=== PATIENT | female | born 1940 | race Caucasian/White ===

== ENCOUNTER 2016-06-30 14:06 | Inpatient (IN) ==
[2016-06-30] MEDS ORDERED: 0.9 % Sodium Chloride 1,000 ML IVC ONE (15:16)
[2016-06-30] MEDS ORDERED: Ondansetron 4 MG/2 ML VIAL IV ONE (15:16)
--- NOTE | 2016-06-30 15:19 | Emergency Department Note ---
Disposition Clinical Impression: CAP (community acquired pneumonia) Vomiting Qualifiers: Vomiting type: unspecified Vomiting Intractability: non-intractable Nausea presence: with nausea Qualified Code(s): R11.2 - Nausea with vomiting, unspecified Disposition: Home, Self-Care Condition: Good Time of Disposition: 15:24 Nausea/Vomiting/Diarrhea HPI - General Chief complaint: ED Nausea/Vomiting/Diarrhea Stated complaint: N/V Time Seen by Provider: 06/30/16 14:57 Source: patient Mode of arrival: ambulatory Limitations: no limitations Nursing Notes Reviewed: Yes Vital Signs Reviewed: Yes - History of Present Illness HPI Narrative: 75-year-old female presents after multiple episodes of vomiting. Patient states that she has vomited twice today. She felt like she was in her usual state of health yesterday. Patient reports the emesis was gold colored but denied hematemesis or coffee-ground emesis. No history of gastric ulcers in the past. Patient denies history of cardiac disease. Patient reports left posterior lateral thoracic pain with deep breaths and with movement. Patient states that this has been present for the past 4 days and thinks that it may have occurred after moving boxes of canned goods. Patient denies other trauma. Patient denies diaphoresis, palpitations, syncope, diarrhea, abdominal pain, dysuria. - Related Data Home Medications Medication Instructions Recorded Confirmed No Known Home Drugs 06/30/16 06/30/16 Allergies Allergy/AdvReac Type Severity Reaction Status Date / Time ANTIBIOTIC Allergy Severe Difficulty Uncoded 06/30/16 16:51 Breathing All systems ED: reviewed and negative except as stated. Constitutional: Denies: fever, chills, weakness, weight change Cardiovascular: Denies: chest pain, palpitations Respiratory: Denies: cough, dyspnea, wheezes Gastrointestinal: Reports: nausea, vomiting. Denies: abdominal pain, diarrhea Genitourinary: Denies: urgency, dysuria Musculoskeletal: Denies: back pain, neck pain Neurological: Denies: headache, weakness, numbness Past Medical History - Past Medical History Attestation: Yes The following information was validated with the patient. Source: patient, other (Pt is poor historian about past medical history) Medical history: Reports: hypertension Psychiatric history: Reports: no psych history - Social History Smoking Status: Never smoker Smokeless Tobacco Status: No Alcohol use: Reports: none Drug use: Reports: none Physical Exam General: Alert and in no acute distress Skin: Warm, dry, intact Head: Normocephalic and atraumatic Neck: Supple, trachea midline and no tenderness Cardiovascular: RRR, 3/6 systolic murmur at the right sternal border, normal perfusion Respiratory: CTAB, no wheezing, cough, or respiratory distress Musculoskeletal: Normal strength, no tenderness, swelling or deformity GI: Soft, nontender, nondistended. Bowel sounds present Neuro: A&O to person, place, time and situation. No focal deficits noted on exam Psychiatric: cooperative and appropriate mood and affect. - General Limitations: no limitations General appearance: alert, in no apparent distress Course Vital Signs Temperature 97.9 F 06/30/16 14:51 Pulse Rate 100 06/30/16 14:51 Respiratory Rate 16 06/30/16 14:51 Blood Pressure 185/72 06/30/16 14:51 O2 Sat by Pulse Oximetry 89 L 06/30/16 14:51 Temperature 0 F L 06/30/16 18:33 Pulse Rate 77 06/30/16 16:18 Respiratory Rate 0 06/30/16 18:33 Blood Pressure 0/0 06/30/16 18:33 O2 Sat by Pulse Oximetry 100 06/30/16 16:18 Oxygen Delivery Oxygen Delivery Nasal Cannula Nausea/Vomiting/Diarrhea - [facility] Narrative Medical decision making narrative: Patient given Zofran and a liter of fluids for control of nausea and possible dehydration. Chest x-ray shows a left lower lobe pneumonia. Patient was hypoxic on arrival and would likely benefit from inpatient treatment. Family and patient are comfortable with plan for admission to the hospital for treatment with IV antibiotics. Patient was prescribed ceftriaxone and azithromycin for likely community-acquired pneumonia. Patient states she had an allergy to an unknown medication multiple years ago but is unsure what this medication is. - Medical Records Medical records reviewed: Yes I reviewed the patient's medical records. - Lab Data Lab results reviewed: Yes I reviewed the patient's lab results. Result diagrams: 06/30/16 15:23 06/30/16 15:23 Lab Results 06/30/16 06/30/16 06/30/16 Range/Units 15:11 15:23 15:23 WBC 14.7 H (4.3-11.1) K/mcL RBC 4.67 (3.82-4.97) M/mcL Hgb 13.2 (11.5-15.4) g/dL Hct 39.2 (35.3-44.9) % MCV 83.9 (83.0-100.0) fL MCH 28.3 (28.0-33.3) pg MCHC 33.7 (31.6-35.5) g/dL RDW 12.2 (11.5-14.5) % Plt Count 143 (140-400) K/mcL MPV 10.9 (9.4-12.4) fL Immature Gran % 0.5 (0-4) % Seg Neutrophils % 88.3 % Lymphocytes % 6.0 % Monocytes % 5.1 % Eosinophils % 0.0 % Basophils % 0.1 % Neutrophils # 13.0 H (1.6-8.9) K/mcL Lymphocytes # 0.9 (0.6-4.6) K/mcL Monocytes # 0.8 (0.0-1.3) K/mcL Eosinophils # 0.0 (0.0-0.6) K/mcL Basophils # 0.0 (0.0-0.2) K/mcL Sodium 131 L (136-145) mEq/L Potassium 4.1 (3.5-4.5) mEq/L Chloride 99 (98-109) mEq/L Carbon Dioxide 24 (19-29) mEq/L BUN 14 (7-20) mg/dL Creatinine 0.76 (0.57-1.11) mg/dL Est GFR ( Amer) > 60 (> 60) Est GFR (Non-Af Amer) > 60 (> 60) BUN/Creatinine Ratio 18 (6-26) Glucose 117 H (70-99) mg/dL Calculated Osmolality 274 L (280-300) Calcium 9.6 (8.6-10.8) mg/dL Total Bilirubin (0.2-1.2) mg/dL Direct Bilirubin (0.0-0.5) mg/dL Indirect Bilirubin (0.0-1.2) mg/dL AST (5-34) Units/L ALT (0-55) Units/L Alkaline Phosphatase (38-126) Units/L Troponin I (0-0.03) ng/mL Serum Total Protein (6.0-8.3) g/dL Albumin (3.5-5.0) g/dL Globulin (2.4-3.5) g/dL Albumin/Globulin Ratio (1.1-2.2) Lipase (8-78) Units/L Urine Color Yellow (Yellow) Urine Clarity Clear (Clear) Urine pH 7.0 (5.0-8.0) pH Units Ur Specific [place] 1.024 (1.010-1.025) Urine Protein 100 H (Neg-Trace) mg/dL Urine Glucose (UA) Normal (Normal) mg/dL Urine Ketones 15 H (Negative) mg/dL Urine Blood Negative (Negative) Urine Nitrite Negative (Negative) Urine Bilirubin Negative (Negative) Urine Urobilinogen Normal (Normal) mg/dL Ur Leukocyte Esterase Negative (Negative) Urine Microscopic RBC 5-15 H (0-3) per hpf Urine Microscopic WBC 0-3 (0-3) per hpf Ur Squamous Epith Cells Moderate H (None-Few) per lpf Urine Bacteria None Seen (None-Few) per hpf Hyaline Casts None Seen (None-Few) per lpf Ur Culture Indicated? NO (NO) 06/30/16 06/30/16 Range/Units 15:23 15:23 WBC (4.3-11.1) K/mcL RBC (3.82-4.97) M/mcL Hgb (11.5-15.4) g/dL Hct (35.3-44.9) % MCV (83.0-100.0) fL MCH (28.0-33.3) pg MCHC (31.6-35.5) g/dL RDW (11.5-14.5) % Plt Count (140-400) K/mcL MPV (9.4-12.4) fL Immature Gran % (0-4) % Seg Neutrophils % % Lymphocytes % % Monocytes % % Eosinophils % % Basophils % % Neutrophils # (1.6-8.9) K/mcL Lymphocytes # (0.6-4.6) K/mcL Monocytes # (0.0-1.3) K/mcL Eosinophils # (0.0-0.6) K/mcL Basophils # (0.0-0.2) K/mcL Sodium (136-145) mEq/L Potassium (3.5-4.5) mEq/L Chloride (98-109) mEq/L Carbon Dioxide (19-29) mEq/L BUN (7-20) mg/dL Creatinine (0.57-1.11) mg/dL Est GFR ( Amer) (> 60) Est GFR (Non-Af Amer) (> 60) BUN/Creatinine Ratio (6-26) Glucose (70-99) mg/dL Calculated Osmolality (280-300) Calcium (8.6-10.8) mg/dL Total Bilirubin 0.9 (0.2-1.2) mg/dL Direct Bilirubin 0.3 (0.0-0.5) mg/dL Indirect Bilirubin 0.6 (0.0-1.2) mg/dL AST 14 (5-34) Units/L ALT 10 (0-55) Units/L Alkaline Phosphatase 87 (38-126) Units/L Troponin I 0.00 (0-0.03) ng/mL Serum Total Protein 8.2 (6.0-8.3) g/dL Albumin 3.5 (3.5-5.0) g/dL Globulin 4.7 H (2.4-3.5) g/dL Albumin/Globulin Ratio 0.7 L (1.1-2.2) Lipase 27 (8-78) Units/L Urine Color (Yellow) Urine Clarity (Clear) Urine pH (5.0-8.0) pH Units Ur Specific [place] (1.010-1.025) Urine Protein (Neg-Trace) mg/dL Urine Glucose (UA) (Normal) mg/dL Urine Ketones (Negative) mg/dL Urine Blood (Negative) Urine Nitrite (Negative) Urine Bilirubin (Negative) Urine Urobilinogen (Normal) mg/dL Ur Leukocyte Esterase (Negative) Urine Microscopic RBC (0-3) per hpf Urine Microscopic WBC (0-3) per hpf Ur Squamous Epith Cells (None-Few) per lpf Urine Bacteria (None-Few) per hpf Hyaline Casts (None-Few) per lpf Ur Culture Indicated? (NO) - Radiology Data Radiology results reviewed: Yes I reviewed the patient's radiology results. - EKG Data EKG attestation: Yes I reviewed and interpreted this EKG.
[2016-06-30 15:38] LABS: Basophils % 0.1 %; Hematocrit 39.2 % (35.3-44.9); Hemoglobin 13.2 g/dL (11.5-15.4); Immature Granulocytes % 0.5 % (0-4); Lymphocytes # 0.9 K/mcL (0.6-4.6); Mean Corpuscular HGB Conc 33.7 g/dL (31.6-35.5); Mean Corpuscular Hemoglobin 28.3 pg (28.0-33.3); Mean Corpuscular Volume 83.9 fL (83.0-100.0); Mean Platelet Volume 10.9 fL (9.4-12.4); Monocytes # 0.8 K/mcL (0.0-1.3); Monocytes % 5.1 %; Platelet Count 143 K/mcL (140-400); Red Blood Count 4.67 M/mcL (3.82-4.97); Red Cell Distribution Width 12.2 % (11.5-14.5); Segmented Neutrophils % 88.3 %
[2016-06-30 15:54] LABS: BUN/Creatinine Ratio 18 (6-26); Blood Urea Nitrogen 14 mg/dL (7-20); Calcium 9.6 mg/dL (8.6-10.8); Carbon Dioxide 24 mEq/L (19-29); Chloride 99 mEq/L (98-109); Glucose 117 mg/dL (70-99); Osmolality,Calculated 274 (280-300); Potassium 4.1 mEq/L (3.5-4.5); Sodium 131 mEq/L (136-145); eGFR For African Americans > 60 (> 60); eGFR For Non-African Americans > 60 (> 60)
[2016-06-30] MEDS ORDERED: Azithromycin 500 MG in D5% in Water 250 ML IVPB ONE (15:55)
[2016-06-30 15:57] LABS: Albumin 3.5 g/dL (3.5-5.0); Albumin/Globulin Ratio 0.7 (1.1-2.2); Bilirubin,Direct 0.3 mg/dL (0.0-0.5); Bilirubin,Indirect 0.6 mg/dL (0.0-1.2); Bilirubin,Total 0.9 mg/dL (0.2-1.2); Globulin 4.7 g/dL (2.4-3.5); Total Protein 8.2 g/dL (6.0-8.3)
[2016-06-30 16:13] LABS: Bilirubin,Urine Negative (Negative); Blood,Urine Negative (Negative); Clarity,Urine Clear (Clear); Color,Urine Yellow (Yellow); Glucose,Urine (UA) Normal (Normal); Ketones,Urine 15 mg/dL (Negative); Leukocyte Esterase,Urine Negative (Negative); Nitrite,Urine Negative (Negative); Protein,Urine 100 mg/dL (Neg-Trace); Specific Gravity,Urine 1.024 (1.010-1.025); Urobilinogen,Urine Normal (Normal)
[2016-06-30 16:15] LABS: Bacteria,Urine None Seen per hpf (None-Few); Hyaline Casts,Urine None Seen per lpf (None-Few); Squamous Epithelial Cell,Urine Moderate per lpf (None-Few); WBC,Urine 0-3 per hpf (0-3)
[2016-06-30] MEDS ORDERED: *HR* Morphine 2 MG/ML SYRINGE IV ONE (16:56)
--- NOTE | 2016-06-30 18:23 | Internal Med History&Physical ---
Date of Encounter: 06/30/16 Time of Encounter: 18:20 Assessment and Plan (1) Community acquired pneumonia Current visit: Yes Status: Acute Patient found to have hypoxia, tachycardia, leukocytosis at presentation. Hypoxia resolved with use of 2 L nasal cannula, tachycardia resolved with improving patient's symptoms. Chest x-ray showed left lower lobe pneumonia with small pleural effusion. Will treat for community acquired pneumonia Continue ceftriaxone Continue azithromycin Continue supplemental oxygen as needed to maintain oxygen saturations above 92% , wean as tolerated Continue to monitor Tylenol for fever [place] and Morphine for pain (2) Chest pain Current visit: Yes Status: Acute Patient reports having chest pain under the ribs on her left anteriolateral side , in the inferior area of the left lung. This coincides with the location of her pneumonia that was seen on CXR. Because of the pleuritic nature of this pain , her hypoxia and tachycardia when she presented, there is some concern for pulmonary embolism. There was a systolic murmur auscultated on exam, she has no prior medical history so it is difficult at gauging the significance of this currently. Will reassess after results return. Will obtain CTA of her chest Will have 75 ml/hr until morning [place] for moderate pain Morphine for severe pain Qualifiers: Chest pain type: chest pain on breathing Qualified Code(s): R07.1 - Chest pain on breathing (3) Vomiting Current visit: Yes Status: Acute Patient reports 2 episodes of non-bloody emesis earlier today. Now resolved with medication Continue Zofran prn for nausea Qualifiers: Vomiting type: unspecified Vomiting Intractability: non-intractable Nausea presence: with nausea Qualified Code(s): R11.2 - Nausea with vomiting, unspecified (4) DVT prophylaxis Current visit: Yes Status: Acute 5000 U heparin SQ BID Internal Medicine - H&P: HPI Chief complaint: Vomiting, Chest Pain, Exertional Dyspnea Admitted From: Home Plans for Post Hospital Care: Home History of present illness: Ms. Vicente is a 75 year old female with a history of htn presents to [facility] after having had chest pain for 5-6 days. She states that pain began before Nasir and was slight at first, but proceeded to get worse over the next few days. She describes the pain as being sharp and located under her ribs in the left lower, mid axillary region of her chest. She described the pain as a 10/10 in severity that had some radiation to her left shoulder. She describes the pain as worsened with inspiration. She states that in about the same time period she has been having some increasing exertional dyspnea. Finally, she states that she had some vomiting today, she reports 2 episodes. She describes her vomit as yellow and non-bloody. She denies having had a fever or chills, denies a cough, and denies mucus production. She denies abdominal pain and denies diarrhea or constipation. Past Med Surg Social Fam HX - Past Medical History Medical history: hypertension Psychiatric history: no psych history - Social History Smoking Status: Never smoker Smokeless Tobacco Status: No Alcohol use: none Drug use: none - Family History Sister Age: 62 Living Status: Still Living Hx Family Cardiac Disorders: Yes Hx Family Respiratory Disorders: No Hx Family Cancer: Yes Hx Family GI Disorders: No Hx Family Endocrine Disorder: No Hx Family Medical Disorders: Yes Internal Medicine - H&P: Meds No Known Home Drugs 06/30/16 [History] Allergies ANTIBIOTIC Allergy (Severe, Uncoded 06/30/16 16:51) Difficulty Breathing PATIENT AND DAUGHTER ARE NOT SURE WHICH ANTIBIOTIC CAUSED CORAZON- IT WAS IN 2007- I CALLED Local [facility] AND THEY DO NOT HAVE FILL RECORDS BACK THAT FAR- - Constitutional Constitutional: no chills, no fever(s), no weakness - EENT Eyes: no change in vision, no pain, no photophobia Nose, mouth and throat: no dysphagia, no nasal discharge, no neck pain, no sore throat - Cardiovascular Cardiovascular ROS IM: as per HPI, chest pain, no diaphoresis, no dyspnea, no lightheadedness, no palpitations, no syncope - Respiratory Respiratory: as per HPI, dyspnea on exertion, pain on inspiration, no cough, no dyspnea, no wheezing, no excessive phlegm production, no change in phlegm color - Gastrointestinal Gastrointestinal: nausea, vomiting, no abdominal pain, no diarrhea, no hematemesis, no hematochezia, no melena - Musculoskeletal Musculoskeletal ROS IM: no numbness, no tingling - Integumentary Integumentary IM: no rash, no unusual bruising - Neurological Neurological ROS: no confusion, no convulsions, no focal weakness, no numbness, no tingling, no tremor(s) - Constitutional Vitals: Temp Pulse Resp BP Pulse Ox 97.9 F 77 18 167/79 100 06/30/16 14:51 06/30/16 16:18 06/30/16 16:18 06/30/16 16:18 06/30/16 16:18 General appearance: Present: cooperative, mild distress, A&O X 3, pleasant, answers questions appropriately - Head Head exam: Present: atraumatic, normocephalic - Eye Eye exam: Present: conjuntiva pink, sclera anicteric - Neck Neck exam general surgery: Present: supple, trachea midline - Respiratory Respiratory exam: Present: decreased breath sounds (throughout), CTAB. Absent: accessory muscle use, rales, rhonchi, wheezes - Cardiovascular Cardiovascular exam: Present: RRR, +S1, +S2, systolic murmur (3/6). Absent: diastolic murmur, gallop, rubs - GI/Abdominal GI/Abdominal exam: Present: normal bowel sounds, soft, no peritoneal signs. Absent: distended, tenderness - Extremities Exam Extremities exam: Present: warm, radial pulses palpable and symetrical. Absent : calf tenderness, cyanotic, pedal edema - Neurological Exam Neurological exam: Present: altered, oriented X3, no focal deficits. Absent: facial droop, speech deficit - Skin Skin exam: Present: dry, intact Internal Med - H&P Results - Labs CBC & Chem 7: 06/30/16 15:23 06/30/16 15:23
[2016-06-30] MEDS ORDERED: Naloxone 0.4 MG/ML INJ IVP PRN (18:52)
[2016-06-30] MEDS ORDERED: Acetaminophen 325 MG TABLET PO PRN (18:52)
[2016-06-30] MEDS ORDERED: Ondansetron 4 MG/2 ML VIAL IVP PRN (18:52)
[2016-06-30] MEDS ORDERED: *HR* HYDROcodone/Acet 5/325 mg TABLET PO PRN (18:52)
[2016-06-30] MEDS: *HR* Morphine 2 MG/ML SYRINGE IVP PRN (19:42)
[2016-06-30] MEDS: 0.9 % Sodium Chloride 1,000 ML IVC SCH (19:46)
[2016-07-01] MEDS: *HR* Morphine 2 MG/ML SYRINGE IVP PRN ×3 (03:18→15:59)
[2016-07-01 05:07] LABS: Basophils % 0.1 %; Eosinophils % 0.3 %; Hematocrit 34.6 % (35.3-44.9); Immature Granulocytes % 0.5 % (0-4); Lymphocytes # 1.4 K/mcL (0.6-4.6); Lymphocytes % 15.9 %; Mean Corpuscular HGB Conc 32.4 g/dL (31.6-35.5); Mean Corpuscular Hemoglobin 28.4 pg (28.0-33.3); Mean Corpuscular Volume 87.8 fL (83.0-100.0); Mean Platelet Volume 11.3 fL (9.4-12.4); Monocytes # 0.9 K/mcL (0.0-1.3); Monocytes % 10.4 %; Neutrophils # 6.4 K/mcL (1.6-8.9); Platelet Count 120 K/mcL (140-400); Red Blood Count 3.94 M/mcL (3.82-4.97); Red Cell Distribution Width 12.4 % (11.5-14.5); Segmented Neutrophils % 72.8 %
[2016-07-01 05:20] LABS: Hemoglobin 11.2 g/dL (11.5-15.4)
[2016-07-01 05:21] LABS: BUN/Creatinine Ratio 18 (6-26); Blood Urea Nitrogen 14 mg/dL (7-20); Calcium 8.7 mg/dL (8.6-10.8); Carbon Dioxide 26 mEq/L (19-29); Chloride 106 mEq/L (98-109); Glucose 107 mg/dL (70-99); Magnesium 1.9 mg/dL (1.6-2.6); Osmolality,Calculated 287 (280-300); eGFR For African Americans > 60 (> 60); eGFR For Non-African Americans > 60 (> 60)
[2016-07-01 05:24] LABS: Sodium 138 mEq/L (136-145)
[2016-07-01] MEDS: *HR* Heparin 5,000 UNIT/ML VIAL SQ SCH ×2 (06:07→17:23)
[2016-07-01] MEDS: 0.9 % Sodium Chloride 1,000 ML IVC SCH ×2 (06:07→17:24)
[2016-07-01] MEDS ORDERED: Pantoprazole 40 MG VIAL IVP SCH (09:00)
[2016-07-01] MEDS: Azithromycin 500 MG in D5% in Water 250 ML IVPB SCH (09:46)
--- NOTE | 2016-07-01 11:31 | Electrocardiograph Report ---
[facility] Test Date: 2016-06-30 Pat Name: Joann Vicente Department: 104 Room: 2NE32 Gender: F [employer] Apprentice: ALEJANDRO : 1940 Requested By: Kendall Chan Order Number: [id number] Reading MD: Kendall Perez Measurements Intervals Max Rate: 89 P: 56 [place]: 140 QRS: -29 QRSD: 100 T: 5 QT: 360 QTc: 407 Interpretive Statements SINUS RHYTHM INCOMPLETE RIGHT BUNDLE BRANCH BLOCK VOLTAGE CRITERIA FOR LVH PROBABLE INFERIOR MYOCARDIAL INFARCTION, PROBABLY OLD Electronically Signed On 07-01-16 11:29:54 EST by Kendall Perez
[2016-07-01] MEDS ORDERED: Albuterol 2.5 MG/3 ML NEBULIZER IH PRN (13:34)
[2016-07-01] MEDS: methylPREDNISolone 125 MG/2 ML VIAL IVP SCH (16:00)
[2016-07-01] MEDS: Ipratropium/Albuterol Neb 3 ML IH SCH ×3 (16:29→22:07)
[2016-07-01 17:11] LABS: 2009 H1N1 PCR NOT DETECTED (Not Detect); Influenza A PCR Negative (Negative); Influenza B PCR Negative (Negative)
[2016-07-01] MEDS: Ketorolac 15 MG/ML VIAL IVP SCH (17:23)
--- NOTE | 2016-07-01 18:29 | Internal Med Progress Note ---
Date of Encounter: 07/01/16 Time of Encounter: 11:30 - Assessment and plan (1) Pneumonia due to aerobic bacteria Current Visit: Yes Status: Acute Assessment and plan: Most likely due to step pneumoniae. Lobar on L side. Continue IV abx and oxygen. Will add steroids and aerosols due to wheezing. Check CXR in AM. (2) Chest pain Current Visit: Yes Status: Acute Assessment and plan: Pleuritic chest pain. Add Toradol. Qualifiers: Chest pain type: chest pain on breathing Qualified Code(s): R07.1 - Chest pain on breathing (3) Vomiting Current Visit: Yes Status: Acute Assessment and plan: Most likely related to pain and illness. Qualifiers: Vomiting type: unspecified Vomiting Intractability: non-intractable Nausea presence: with nausea Qualified Code(s): R11.2 - Nausea with vomiting, unspecified - Subjective Interval history: Ms. Vicente is currently admitted for acute pneumonia. She remains high risk due to significant pleuritic pain, hypoxemia and potential worsening of respiratory status. Ms. Vicente is having a lot of L side pleuritic pain. She is quite anxious and current pain meds not completely helpful. Feels dyspneic and weak. No GI symptoms. Appetite fair. - Constitutional Vitals: Temp Pulse Resp BP Pulse Ox 99.1 F 59 18 144/67 98 07/01/16 15:15 07/01/16 15:15 07/01/16 16:31 07/01/16 15:15 07/01/16 16:31 General appearance: Present: cooperative, A&O X 3, severe distress, answers questions appropriately - Head Head exam: Present: normocephalic - Eye Eye exam: Present: EOMI, conjuntiva pink - ENT ENT exam: Present: mucous membranes dry - Respiratory Respiratory exam: Present: rhonchi, wheezes Additional comments: Diminished breath sounds and crackles in L mid lobe laterally. - Cardiovascular Cardiovascular exam: Present: RRR, tachycardia - GI/Abdominal GI/Abdominal exam: Present: soft. Absent: mass, tenderness - Extremities Exam Extremities exam: Present: warm. Absent: pedal edema - Neurological Exam Neurological exam: Present: alert, oriented X3, no focal deficits - Psychiatric Psychiatric exam: Present: anxious - Skin Skin exam: Present: dry, normal color, warm. Absent: rash Internal Medicine: Result - Labs CBC & Chem 7: 07/01/16 04:43 07/01/16 04:43 Consult Discharge Plan - Plan Referrals: Jaime Huerta, POPPY [Advanced Practice Nurse] - 07/08/16 10:30 am
[2016-07-02] MEDS: methylPREDNISolone 125 MG/2 ML VIAL IVP SCH ×3 (00:18→18:26)
[2016-07-02] MEDS: Ketorolac 15 MG/ML VIAL IVP SCH ×4 (00:18→18:25)
[2016-07-02] MEDS: Ipratropium/Albuterol Neb 3 ML IH SCH ×4 (04:57→20:57)
[2016-07-02] MEDS: *HR* Heparin 5,000 UNIT/ML VIAL SQ SCH ×2 (06:19→18:25)
[2016-07-02 07:07] LABS: Hematocrit 35.9 % (35.3-44.9); Hemoglobin 11.2 g/dL (11.5-15.4); Mean Corpuscular HGB Conc 31.2 g/dL (31.6-35.5); Mean Corpuscular Hemoglobin 27.9 pg (28.0-33.3); Mean Corpuscular Volume 89.5 fL (83.0-100.0); Mean Platelet Volume 10.9 fL (9.4-12.4); Platelet Count 122 K/mcL (140-400); Red Blood Count 4.01 M/mcL (3.82-4.97); Red Cell Distribution Width 12.1 % (11.5-14.5)
[2016-07-02 07:26] LABS: BUN/Creatinine Ratio 28 (6-26); Blood Urea Nitrogen 20 mg/dL (7-20); Calcium 9.1 mg/dL (8.6-10.8); Carbon Dioxide 23 mEq/L (19-29); Chloride 109 mEq/L (98-109); Glucose 167 mg/dL (70-99); Magnesium 1.9 mg/dL (1.6-2.6); Osmolality,Calculated 296 (280-300); Potassium 4.4 mEq/L (3.5-4.5); Sodium 140 mEq/L (136-145); eGFR For African Americans > 60 (> 60); eGFR For Non-African Americans > 60 (> 60)
--- NOTE | 2016-07-02 08:47 | Internal Med Progress Note ---
Date of Encounter: 07/02/16 Time of Encounter: 08:30 - Assessment and plan (1) Pneumonia due to aerobic bacteria Current Visit: Yes Status: Acute Assessment and plan: Probable strep pneumoniae though urinary antigen negative. Sputum nondiagnostic at this time. Legionella negative. Continue same abx, aerosols, steroids and supportive care. (2) Chest pain Current Visit: Yes Status: Acute Assessment and plan: Seems to be somewhat better today with the addition of Toradol. Will continued scheduled today and probably make PRN tomorrow. Qualifiers: Chest pain type: chest pain on breathing Qualified Code(s): R07.1 - Chest pain on breathing (3) Vomiting Current Visit: Yes Status: Acute Assessment and plan: Seems to be doing better with pain controlled. Qualifiers: Vomiting type: unspecified Vomiting Intractability: non-intractable Nausea presence: with nausea Qualified Code(s): R11.2 - Nausea with vomiting, unspecified - Subjective Interval history: Ms. Vicente is currently admitted for acute pneumonia. She remains high risk due to significant pleuritic pain, hypoxemia and potential worsening of respiratory status. Ms. Vicente slept a little better last night. Appears Toradol has been helpful for pain. Not coughing as much. Less dyspneic after starting treatments and steroids. No new issues at this time. - Constitutional Vitals: Temp Pulse Resp BP Pulse Ox 97.6 F 69 15 157/83 96 07/02/16 05:00 07/02/16 05:00 07/02/16 05:31 07/02/16 05:00 07/02/16 05:31 General appearance: Present: cooperative, A&O X 3, answers questions appropriately - Head Head exam: Present: normocephalic - Eye Eye exam: Present: EOMI, conjuntiva pink - ENT ENT exam: Present: mucous membranes dry - Respiratory Respiratory exam: Present: rhonchi, wheezes Additional comments: Decreased breath sounds on L. Very moist cough today. - Cardiovascular Cardiovascular exam: Present: RRR. Absent: systolic murmur, tachycardia - GI/Abdominal GI/Abdominal exam: Present: soft. Absent: mass, tenderness - Extremities Exam Extremities exam: Present: warm. Absent: pedal edema - Neurological Exam Neurological exam: Present: alert, oriented X3, no focal deficits - Psychiatric Psychiatric exam: Present: normal affect, normal mood - Skin Skin exam: Present: dry, warm. Absent: rash Internal Medicine: Result - Labs CBC & Chem 7: 07/02/16 06:41 07/02/16 06:41 Labs: Short CBC 07/02/16 Range/Units 06:41 WBC 8.3 (4.3-11.1) K/mcL Hgb 11.2 L (11.5-15.4) g/dL Hct 35.9 (35.3-44.9) % Plt Count 122 L (140-400) K/mcL [facility] 07/02/16 06:41 Sodium 140 Potassium 4.4 Chloride 109 Carbon Dioxide 23 BUN 20 Creatinine 0.72 Glucose 167 H Calcium 9.1 Consult Discharge Plan - Plan Referrals: aJime Huerta, [employer] DEPARTMENT CHAIR [Advanced Practice Nurse] - 07/08/16 10:30 am
[2016-07-02] MEDS: Azithromycin 500 MG in D5% in Water 250 ML IVPB SCH (10:06)
[2016-07-03] MEDS: Ketorolac 15 MG/ML VIAL IVP SCH ×4 (00:35→17:44)
[2016-07-03] MEDS: methylPREDNISolone 125 MG/2 ML VIAL IVP SCH ×2 (02:25→09:14)
[2016-07-03] MEDS: Ipratropium/Albuterol Neb 3 ML IH SCH ×4 (03:40→21:50)
[2016-07-03] MEDS: *HR* Heparin 5,000 UNIT/ML VIAL SQ SCH ×2 (06:01→17:44)
[2016-07-03] MEDS: 0.9 % Sodium Chloride 1,000 ML IVC SCH (09:14)
[2016-07-03] MEDS: Azithromycin 500 MG in D5% in Water 250 ML IVPB SCH (09:14)
--- NOTE | 2016-07-03 11:29 | Internal Med Progress Note ---
<Edwardo Marcelo - Last Filed: 07/03/16 11:44> Date of Encounter: 07/03/16 Time of Encounter: 11:27 - Assessment and plan (1) CAP (community acquired pneumonia) Current Visit: Yes Status: Acute Assessment and plan: LLL based on plain films day 3 ceftriaxone/azithromycin with clinical improvement, although worsening of cxr will consider upright AP/lateral tomorrow to characterize the patient is improving and will likely be DC within day or two on PO amoxicillin 875bid and possibly azithromycin taper to PO prednisone (2) Chest pain Current Visit: Yes Status: Resolved Assessment and plan: cont prn toradol Qualifiers: Chest pain type: chest pain on breathing Qualified Code(s): R07.1 - Chest pain on breathing (3) Pneumonia due to aerobic bacteria Current Visit: Yes Status: Acute Assessment and plan: Probable strep pneumoniae though urinary antigen negative. Sputum nondiagnostic at this time. Legionella negative. Continue same abx, aerosols, steroids and supportive care. (4) DVT prophylaxis Current Visit: Yes Status: Acute Assessment and plan: heparin sq q12 - Time Spent With Patient 25 - 35 minutes - Subjective Interval history: pt improving no more pleuritic pain on the L side, shortness of breath improved , denies cp/f/n/v. no more vomiting. sitting upright in chair. - Constitutional Vitals: Temp Pulse Resp BP Pulse Ox 97.7 F 88 16 168/92 95 07/03/16 07:00 07/03/16 07:00 07/03/16 10:57 07/03/16 07:00 07/03/16 10:57 General appearance: Present: A&O X 3, pleasant, no acute distress, answers questions appropriately - Head Head exam: Present: atraumatic, normocephalic - Eye Eye exam: Present: PERRL, conjuntiva pink, sclera anicteric Pupils: Present: PERRL - Neck Neck exam general surgery: Present: supple, trachea midline. Absent: lymphadenopathy - Respiratory Respiratory exam: Present: decreased breath sounds (Left lower lobe). Absent: accessory muscle use, rales, rhonchi, wheezes - Cardiovascular Cardiovascular exam: Present: RRR, +S1, +S2. Absent: rubs - GI/Abdominal GI/Abdominal exam: Present: normal bowel sounds, soft, no peritoneal signs. Absent: distended, tenderness - Extremities Exam Extremities exam: Present: warm, radial pulses palpable and symetrical - Neurological Exam Neurological exam: Present: CN II-XII intact, oriented X3, no focal deficits. Absent: facial droop, speech deficit - Skin Skin exam: Present: dry Internal Medicine: Result - Labs CBC & Chem 7: 07/02/16 06:41 07/02/16 06:41 - Impressions Impressions Chest X-Ray 07/02/16 07:00 IMPRESSION: 1. Interval worsening of left base opacity and pleural effusion, compatible with infection. 2. New ground-glass opacity in the right base with trace pleural effusion, concerning for progression of infection. D/ / 07/02/2016 10:12:55 Ashlee Manzo MD / derrick Interpreting Provider: Ashlee Manzo MD Consult Discharge Plan - Plan Referrals: Jaime Huerta, DANCE COACH [Advanced Practice Nurse] - 07/08/16 10:30 am <Blayne Nicole - Last Filed: 07/03/16 19:07> Date of Encounter: 07/03/16 - Assessment and plan (1) Acute respiratory failure with hypoxia Current Visit: Yes Status: Acute Assessment and plan: Supplemental oxygen and wean as able. (2) Pneumonia due to aerobic bacteria Current Visit: Yes Status: Acute (3) Hypertension Current Visit: Yes Status: Acute Assessment and plan: Pt does not have hx of HTN but has not been seen by doctor. Will start meds today. Qualifiers: Hypertension type: essential hypertension Qualified Code(s): I10 - Essential (primary) hypertension (4) Chest pain Current Visit: Yes Status: Resolved Qualifiers: Chest pain type: chest pain on breathing Qualified Code(s): R07.1 - Chest pain on breathing (5) Vomiting Current Visit: Yes Status: Acute Qualifiers: Vomiting type: unspecified Vomiting Intractability: non-intractable Nausea presence: with nausea Qualified Code(s): R11.2 - Nausea with vomiting, unspecified - Constitutional Vitals: Temp Pulse Resp BP Pulse Ox 98.1 F 96 16 179/90 97 07/03/16 15:00 07/03/16 15:00 07/03/16 16:42 07/03/16 17:36 07/03/16 16:42 Internal Medicine: Result - Labs CBC & Chem 7: 07/02/16 06:41 07/02/16 06:41 - Attending Attestation I examined this patient and my medical decision-making was reviewed with the Resident Physician. I agree with the documented findings, disposition and treatment plan as described except to the extent set forth below. Ms. Vicente is currently admitted for acute hypoxic resp failure due to acute pneumonia. She remains high risk due to the potential of worsening pneumonia and respiratory failure. Ms. Vicente is eating breakfast. She slept OK. Still having a lot of cough and brought up scant blood in her sputum. No fever or chills. No GI symptoms. Breathing treatments seem to help. Exam Alert. Mild resp distress at rest. Mucus membranes moist Heart reg with murmur Lungs with coarse rales and rhonchi bilaterally Abd soft I/P 1. Acute hypoxic resp failure 2. Pneumonia Further diagnoses and plan as above.
[2016-07-04] MEDS: Ketorolac 15 MG/ML VIAL IVP SCH ×2 (00:29→05:37)
[2016-07-04] MEDS: Ipratropium/Albuterol Neb 3 ML IH SCH ×4 (04:05→21:20)
[2016-07-04] MEDS: *HR* Heparin 5,000 UNIT/ML VIAL SQ SCH ×2 (05:37→16:11)
[2016-07-04] MEDS: predniSONE 20 MG TABLET PO SCH (09:07)
[2016-07-04] MEDS: Azithromycin 500 MG in D5% in Water 250 ML IVPB SCH (09:07)
--- NOTE | 2016-07-04 09:09 | Internal Med Progress Note ---
Addendum entered and electronically signed by Edwardo Marcelo DO 16:27: Hypertension - lisinopril 20mg daily, coreg 6.25 start tonight, has hydralazine. Original Note: <Edwardo Marcelo - Last Filed: 07/04/16 11:53> Date of Encounter: 07/04/16 Time of Encounter: 08:35 - Assessment and plan (1) CAP (community acquired pneumonia) Current Visit: Yes Status: Acute Assessment and plan: LLL based on plain films continue day 4 ceftriaxone/azithromycin with clinical improvement f/u on legionella urine antigen likely DC tomorrow pending PT/OT eval and placement options the patient is improving and likely be DC within day or two on PO amoxicillin 875bid and possibly azithromycin cont to taper PO prednisone (2) Chest pain Current Visit: Yes Status: Resolved Assessment and plan: DC toradol and evaluate pain pleuritic Qualifiers: Chest pain type: chest pain on breathing Qualified Code(s): R07.1 - Chest pain on breathing (3) Pneumonia due to aerobic bacteria Current Visit: Yes Status: Acute Assessment and plan: checking strep and legionella antigen (4) DVT prophylaxis Current Visit: Yes Status: Acute Assessment and plan: heparin sq q12 - Time Spent With Patient 25 - 35 minutes - Subjective Interval history: pt continues to improve, denies sob/fever. pleuritic L side pain minimal to gone. no production. able to ambulate to chair sit down stand up without issues. 07/03 pt improving no more pleuritic pain on the L side, shortness of breath improved , denies cp/f/n/v. no more vomiting. sitting upright in chair. - Constitutional Vitals: Temp Pulse Resp BP Pulse Ox 98.5 F 82 16 174/89 92 L 07/04/16 07:55 07/04/16 07:55 07/04/16 07:55 07/04/16 07:55 07/04/16 07:55 General appearance: Present: A&O X 3, pleasant, no acute distress, answers questions appropriately - Head Head exam: Present: atraumatic, normocephalic - Eye Eye exam: Present: PERRL, conjuntiva pink, sclera anicteric Pupils: Present: PERRL - Neck Neck exam general surgery: Present: supple, trachea midline. Absent: lymphadenopathy - Respiratory Respiratory exam: Present: decreased breath sounds (bilateral stable compared to yesterday). Absent: prolonged expiratory phase, wheezes, tachypnea - Cardiovascular Cardiovascular exam: Present: RRR, +S1, +S2 - GI/Abdominal GI/Abdominal exam: Present: normal bowel sounds, soft - Extremities Exam Extremities exam: Present: warm, radial pulses palpable and symetrical - Neurological Exam Neurological exam: Present: CN II-XII intact, oriented X3, no focal deficits - Skin Skin exam: Present: dry, intact Internal Medicine: Result - Labs CBC & Chem 7: 07/02/16 06:41 07/02/16 06:41 Consult Discharge Plan - Plan Referrals: Jaime Huerta, BEATER MACHINE OPERATOR [Advanced Practice Nurse] - 07/08/16 10:30 am <Blayne Nicole - Last Filed: 07/04/16 17:40> Date of Encounter: 07/04/16 - Assessment and plan (1) Acute respiratory failure with hypoxia Current Visit: Yes Status: Acute Assessment and plan: Starting to wean oxygen. (2) Pneumonia due to aerobic bacteria Current Visit: Yes Status: Acute (3) Hypertension Current Visit: Yes Status: Acute Assessment and plan: Adjust meds. Qualifiers: Hypertension type: essential hypertension Qualified Code(s): I10 - Essential (primary) hypertension (4) Chest pain Current Visit: Yes Status: Resolved Qualifiers: Chest pain type: chest pain on breathing Qualified Code(s): R07.1 - Chest pain on breathing (5) Vomiting Current Visit: Yes Status: Acute Qualifiers: Vomiting type: unspecified Vomiting Intractability: non-intractable Nausea presence: with nausea Qualified Code(s): R11.2 - Nausea with vomiting, unspecified - Constitutional Vitals: Temp Pulse Resp BP Pulse Ox 98.5 F 88 18 192/91 95 07/04/16 07:55 07/04/16 15:00 07/04/16 16:01 07/04/16 15:00 07/04/16 16:01 Internal Medicine: Result - Labs CBC & Chem 7: 07/02/16 06:41 07/02/16 06:41 - Attending Attestation I examined this patient and my medical decision-making was reviewed with the Resident Physician. I agree with the documented findings, disposition and treatment plan as described except to the extent set forth below. Ms. Vicente is currently admitted for CAP. She is moderate to high risk due to potential of worsening respiratory symptoms. Ms. Vicente is doing a little better. Wants to take a shower. Pleuritic pain doing better. Cough still there. No GI symptoms. Exam Alert. Comfortable Heart reg Lungs diminished - no wheeze. I/P 1. CAP 2. HTN Further diagnoses and plan as above. Possible d/c tomorrow if doing OK.
[2016-07-05] MEDS: Ipratropium/Albuterol Neb 3 ML IH SCH ×4 (03:13→22:19)
[2016-07-05] MEDS: *HR* Heparin 5,000 UNIT/ML VIAL SQ SCH ×2 (06:07→17:49)
[2016-07-05] MEDS ORDERED: Lisinopril 20 MG TABLET PO SCH (09:00)
--- NOTE | 2016-07-05 09:21 | ECHO - Doppler Report ---
Echocardiogram Name: Joann Vicente Date of Study: 07/04/2016 Date: 1940 Ht: 61.0 in Medical Record#: [id number] Age: 75 Wt: 151.0 lb Gender: Female BSA: 1.68 Order #: [id number] Location: [facility] Room #: 2NE32 Reading Physician: Nathan Lozano MD, [facility] Lever Tender: Priya Doss Ordering Physician: Edwardo Marcelo DO Primary Physician: None Indications: Evaluate heart, Murmur Impressions: Normal left ventricular size and systolic function, LVEF 70-75%. Mild left ventricular diastolic dysfunction. Normal right ventricular structure and function. Mildly dilated left atrium. Moderately calcified aortic valve leaflets. Valve morphology not well visualized. Cannot determine if bicuspid or tricuspid. Mild-moderate aortic stenosis. Mild mitral regurgitation. Mild pulmonary hypertension. Estimated RVSP = 36 mmHg. Left Ventricular Wall Motion: Rest Echo Findings All wall segments showed normal motion. Findings: Study Quality * Suboptimal echo windows. ECG Findings * Normal sinus rhythm. Left Ventricle * Normal left ventricular size and systolic function, LVEF 70-75%. * Normal LV wall thickness. * Mild left ventricular diastolic dysfunction. Right Ventricle * Normal right ventricular structure and function. Left Atrium * Mildly dilated left atrium. Right Atrium * Normal right atrial size. Aorta * Normally sized aortic root. Pericardium * There is no pericardial effusion present. IVC * Normal IVC dimensions and inspiratory collapse. Aortic Valve * Moderately calcified aortic valve leaflets. Valve morphology not well visualized. Cannot determine if bicuspid or tricuspid. * Mild-moderate aortic stenosis. * No aortic regurgitation. Mitral Valve * Mildly calcified mitral valve leaflets. * No mitral stenosis. * Mild mitral regurgitation. Tricuspid Valve * Normal tricuspid valve structure. * No tricuspid stenosis. * Trace tricuspid regurgitation. * Mild pulmonary hypertension. Estimated RVSP = 36 mmHg. Pulmonic Valve * Pulmonic valve not well visualized. * No pulmonic stenosis. * No pulmonic regurgitation. History Hypertension Rheumatic Fever Family History of CAD Measurements: BP: 154/ 73 2D Normal Values RVIDd: 3.40 cm IVSd: .90 cm 0.6 - 1.0 cm LVIDd: 4.30 cm 3.7 - 5.6 cm LVPWd: .90 cm 0.6 - 1.1 cm LVIDs: 1.80 cm 1.5 - 3.6 cm AO: 2.80 cm < 4.0 cm LVOT Diam: 2.00 cm LA volume: 60 Mitral Valve Peak E:1.10 m/sec Peak A:1.32 m/sec E/A Ratio:0.8 Peak E' Lat Wild:10.1 cm/s Peak E' Med Wild:8.83 cm/s E/E' Lat Ratio:10.9 E/E' Med Ratio:12.5 Aortic Valve Peak Wild:3.09 m/sec Peak Grad:38.00 mmHg Mean Grad:21.00 mmHg Valve Area:1.60 cm2 Tricuspid Valve TV Regurg Peak Grad: 33.00mmHg TV Regurg Peak Wild: 2.90m/sec Updated by Nathan Lozano MD, [facility] on 07/05/2016 9:13:33 AM electronically signed on 07/05/2016 9:15:12 AM with status of Final Wall Motion Rodriguez: 1=Normal, 2=Hypokinesis, 3=Akinesis, 4=Dyskinesis, 5=Aneurysmal, 6=Hyperkinetic, X=Not Visualized (Blank)=Missing
--- NOTE | 2016-07-05 09:41 | Internal Med Progress Note ---
Date of Encounter: 07/05/16 Time of Encounter: 09:20 - Constitutional Vitals: Temp Pulse Resp BP Pulse Ox 98.3 F 66 16 174/89 95 07/05/16 07:53 07/05/16 07:53 07/05/16 07:53 07/05/16 07:53 07/05/16 07:53 General appearance: Present: A&O X 3, pleasant, no acute distress, answers questions appropriately Internal Medicine: Result - Labs CBC & Chem 7: 07/02/16 06:41 07/02/16 06:41 Consult Discharge Plan - Plan Referrals: Jaime Huerta, FIRE MANAGEMENT TECHNICIAN [Advanced Practice Nurse] - 07/08/16 10:30 am
[2016-07-05] MEDS: predniSONE 20 MG TABLET PO SCH (09:46)
[2016-07-05] MEDS: Azithromycin 500 MG in D5% in Water 250 ML IVPB SCH (09:46)
--- NOTE | 2016-07-05 10:33 | Discharge Summary ---
<Linda Mendez - Last Filed: 07/05/16 16:00> Date of Encounter: 07/05/16 Time of Encounter: 09:30 - Discharge Diagnosis (1) Community acquired pneumonia Priority: Primary Status: Acute (2) Hypertension Priority: Secondary Status: Chronic Qualifiers: Hypertension type: essential hypertension Qualified Code(s): I10 - Essential (primary) hypertension (3) Chest pain Priority: Secondary Status: Resolved Qualifiers: Chest pain type: chest pain on breathing Qualified Code(s): R07.1 - Chest pain on breathing - Discharge Medications Prescriptions: Amoxicillin 875 mg PO BID #6 tablet Carvedilol [Coreg] 6.25 mg PO BIDWM #60 tablet Lisinopril [Zestril] 20 mg PO DAILY #30 tablet Home Medications: Amoxicillin 875 mg PO BID #6 tablet 07/05/16 [Rx] Carvedilol [Coreg] 6.25 mg PO BIDWM #60 tablet 07/05/16 [Rx] Lisinopril [Zestril] 20 mg PO DAILY #30 tablet 07/05/16 [Rx] Allergies/Adverse Reactions: Allergies ANTIBIOTIC Allergy (Severe, Uncoded 06/30/16 16:51) Difficulty Breathing PATIENT AND DAUGHTER ARE NOT SURE WHICH ANTIBIOTIC CAUSED CORAZON- IT WAS IN 2007- I CALLED [facility] AND THEY DO NOT HAVE FILL RECORDS BACK THAT FAR- Procedures/tests Complete & Pending: Procedures Performed prior 72 hours Category Date Time Status ECG 12 lead ECG [ECG] Routine Y 07/04/16 22:05 Completed EV echocardiogram Timed Y 07/04/16 11:33 Completed Date of admission: 07/01/16 07:40 Primary care physician: PCP NO Consults: 07/04/16 08:27 Consult to Occupational Therapy [CONS] Stat Comment: Evaluate, develop and implement POC Consult to Physical Therapy [CONS] Stat Comment: Evaluate, develop and implement POC 07/01/16 15:42 Consult to Glazing Machine Operator [CONS] Routine Reason for SW Consult: No rx coverage; lost Medicaid. Discharging clinician: Linda Mendez Anticipated date of discharge: 07/05/16 - Patient Status Disposition: Home, Self-Care Condition: Good Functional capacity at discharge: independent ambulation Overall status at discharge: patient is progressing back to baseline - Discharge Instructions Instructions: Chronic Hypertension (DC), Pneumonia (DC) Follow Up With: Jaime Huerta, HIGH SCHOOL ASSISTANT FOOTBALL COACH [Advanced Practice Nurse] - 07/08/16 10:30 am Additional Instructions: Please take amoxicillin 875 mg by mouth twice a day for 3 more days. Please take prescribed blood pressure medications. Please follow up with your primary care provider regarding you pneumonia and hypertension. - Diet and Activity Activity: increase activity as tolerated Diet: advance to your usual diet Hospital course: Ms. Vicente is a 75 year old female with PMH of HTN. Patient presented to ED with 5-day history of chest pain, which is worsen on inspiration. Patient was noted to have hypoxia, tachycardia, leukocytosis at presentation. CXR suggests LLL pneumonia with small pleural effusion. Patient was admitted on 06/30/16 for community acquired pneumonia. Over her hospitalization, patient's shortness of breath improves, WBC normalized and tachycardia resolved. Patient was also noted to have elevated BP. Coreg and Lisinopril were initiated. Given patient has been medically stable, will discharge patient home on 07/05/2015 with 3 more days of Amoxicillin 875 mg PO BID. Regarding her hypertension, will discharge patient home with Coreg and Lisinopril and have her follow up with her PCP for further BP medications adjustment. - Time Spent with Patient Total time spent providing and/or coordinating discharge services: Greater than 30 minutes - Constitutional Vitals: Temp Pulse Resp BP Pulse Ox 98.3 F 66 16 174/89 95 07/05/16 07:53 07/05/16 07:53 07/05/16 07:53 07/05/16 07:53 07/05/16 09:00 General appearance: Present: A&O X 3, pleasant, no acute distress, answers questions appropriately - Head Head exam: Present: atraumatic, normocephalic - Eye Eye exam: Present: PERRL, conjuntiva pink, sclera anicteric Pupils: Present: PERRL - Neck Neck exam general surgery: Present: supple, trachea midline. Absent: lymphadenopathy - Respiratory Respiratory exam: Present: CTAB. Absent: accessory muscle use, rales, rhonchi, wheezes - Cardiovascular Cardiovascular exam: Present: RRR, +S1, +S2. Absent: diastolic murmur, gallop, rubs, systolic murmur - GI/Abdominal GI/Abdominal exam: Present: normal bowel sounds, soft, no peritoneal signs. Absent: distended, tenderness - Extremities Exam Extremities exam: Present: warm, radial pulses palpable and symetrical. Absent : calf tenderness, cyanotic, pedal edema - Neurological Exam Neurological exam: Present: CN II-XII intact, oriented X3, no focal deficits. Absent: pronater drift, facial droop, speech deficit - Skin Skin exam: Present: dry, intact, warm <Carley,Augusto P - Last Filed: 07/05/16 19:02> Date of Encounter: 07/05/16 Procedures/tests Complete & Pending: Procedures Performed prior 72 hours Category Date Time Status ECG 12 lead ECG [ECG] Routine Y 07/04/16 22:05 Completed EV echocardiogram Timed Y 07/04/16 11:33 Completed Date of admission: 07/01/16 07:40 Primary care physician: PCP NO Consults: 07/04/16 08:27 Consult to Occupational Therapy [CONS] Stat Comment: Evaluate, develop and implement POC Consult to Physical Therapy [CONS] Stat Comment: Evaluate, develop and implement POC 07/01/16 15:42 Consult to Glazing Machine Operator [CONS] Routine Reason for SW Consult: No rx coverage; lost Medicaid. Hospital course: Ms. Vicente is a 75 year old female - Time Spent with Patient Total time spent providing and/or coordinating discharge services: - Constitutional Vitals: Temp Pulse Resp BP Pulse Ox 98.3 F 70 18 187/93 96 07/05/16 15:37 07/05/16 16:58 07/05/16 16:58 07/05/16 16:58 07/05/16 16:58 - Attending Attestation I examined this patient and my medical decision-making was reviewed with the CODING MANAGER/PA/Advanced Practice Nurse/Resident Physician. I agree with the documented findings, disposition and treatment plan as described except to the extent set forth below.
[2016-07-05] MEDS ORDERED: Lisinopril 20 MG TABLET PO ONE (11:45)
--- NOTE | 2016-07-05 14:32 | Electrocardiograph Report ---
[facility] Test Date: 2016-07-04 Pat Name: PILAR KRISHNAN Department: 111 Room: 2NE32 Gender: F Supervisor [employer]ling: [facility] : 1940 Requested By: Blayne Nicole Order Number: [id number] Reading MD: Kendall Perez Measurements Intervals [place] Rate: 85 P: 56 VT: 130 QRS: -24 QRSD: 89 T: 3 QT: 353 QTc: 395 Interpretive Statements SINUS RHYTHM BORDERLINE LEFT AXIS DEVIATION VOLTAGE CRITERIA FOR LVH Electronically Signed On 07-05-16 14:31:31 EST by Kendall Perez
[2016-07-06] MEDS: Ipratropium/Albuterol Neb 3 ML IH SCH ×3 (03:38→15:23)
[2016-07-06] MEDS: *HR* Heparin 5,000 UNIT/ML VIAL SQ SCH (06:49)
[2016-07-06] MEDS: predniSONE 20 MG TABLET PO SCH (08:41)
[2016-07-06] MEDS ORDERED: Azithromycin 250 MG TABLET PO SCH (09:00)
[2016-07-06] MEDS ORDERED: Lisinopril 20 MG TABLET PO SCH (09:00)
--- NOTE | 2016-07-06 09:43 | Internal Med Progress Note ---
<Linda Mendez - Last Filed: 07/06/16 13:41> Date of Encounter: 07/06/16 Time of Encounter: 08:30 - Assessment and plan (1) Community acquired pneumonia Status: Acute Assessment and plan: - CXR on admission suggests LLL pneumonia with small pleural effusion. - Clinically improved as patient reports better in breathing and cough. - Currently on Rocephin and azithromycin and will discharge home with amoxicillin. - Will discharge patient home with home health today. Please see discharge summary from yesterday for more detail. (2) Hypertension Status: Chronic Assessment and plan: - Better controlled with BP around 150s/70s most of time. - Discharge home with Coreg 6.25 mg BID and Lisinopril 40 mg daily. Qualifiers: Hypertension type: essential hypertension Qualified Code(s): I10 - Essential (primary) hypertension (3) Chest pain Status: Resolved Assessment and plan: - Resolved as patient reports no longer having chest pain on inspiration or cough. Qualifiers: Chest pain type: chest pain on breathing Qualified Code(s): R07.1 - Chest pain on breathing - Subjective Interval history: No significant event noted overnight and patient's BP has been better controlled ~ 150/80. Patient was seen and examined this morning. Patient reports being able to breath and cough better compared to yesterday. Patient denies fever, chills, chest pain, nausea, vomiting, diarrhea. - Constitutional Vitals: Temp Pulse Resp BP Pulse Ox 98.2 F 56 14 151/77 91 L 07/06/16 07:49 07/06/16 07:49 07/06/16 07:49 07/06/16 07:51 07/06/16 08:00 General appearance: Present: A&O X 3, pleasant, no acute distress, answers questions appropriately - Head Head exam: Present: atraumatic, normocephalic - Eye Eye exam: Present: PERRL, conjuntiva pink, sclera anicteric Pupils: Present: PERRL - Neck Neck exam general surgery: Present: supple, trachea midline. Absent: lymphadenopathy - Respiratory Respiratory exam: Present: CTAB. Absent: accessory muscle use, rales, rhonchi, wheezes (Mild) - Cardiovascular Cardiovascular exam: Present: RRR, +S1, +S2. Absent: diastolic murmur, gallop, rubs, systolic murmur - GI/Abdominal GI/Abdominal exam: Present: normal bowel sounds, soft, no peritoneal signs. Absent: distended, tenderness - Extremities Exam Extremities exam: Present: warm, radial pulses palpable and symetrical. Absent : calf tenderness, cyanotic, pedal edema - Neurological Exam Neurological exam: Present: CN II-XII intact, oriented X3, no focal deficits. Absent: pronater drift, facial droop, speech deficit - Skin Skin exam: Present: dry, intact, warm Internal Medicine: Result - Labs CBC & Chem 7: 07/02/16 06:41 07/02/16 06:41 - Impressions Impressions Chest X-Ray 07/05/16 07:00 IMPRESSION: Small bilateral pleural effusions and basilar airspace disease, pulmonary edema versus pneumonia. Opacity in the left base is similar to 07/02/2016. Opacity in the right base is increased in the interval. D/ / Edwardo Milian MD / Edwardo Milian MD Interpreting Provider: Edwardo Milian MD Consult Discharge Plan - Plan Instructions: Lisinopril (By mouth), Amoxicillin/Clavulanate Potassium (By mouth), Carvedilol (By mouth), Chest Pain (DC), Acute Respiratory Distress Syndrome (DC), Chronic Hypertension (DC), Pneumonia (DC) Additional Instructions: Please take amoxicillin 875 mg by mouth twice a day for 3 more days. Please take prescribed blood pressure medications. Please follow up with your primary care provider regarding you pneumonia and hypertension. Referrals: Jaime Huerta CNP [Advanced Practice Nurse] - 07/08/16 10:30 am Prescriptions: Amoxicillin 875 mg PO BID #6 tablet Carvedilol [Coreg] 6.25 mg PO BIDWM #60 tablet Lisinopril [Zestril] 40 mg PO DAILY #30 tablet <Augusto Howe - Last Filed: 07/06/16 18:53> Date of Encounter: 07/06/16 - Constitutional Vitals: Temp Pulse Resp BP Pulse Ox 98.4 F 72 16 148/81 90 L 07/06/16 12:05 07/06/16 12:05 07/06/16 12:05 07/06/16 12:08 07/06/16 12:05 Internal Medicine: Result - Labs CBC & Chem 7: 07/02/16 06:41 07/02/16 06:41 - Attending Attestation I examined this patient and my medical decision-making was reviewed with the MANAGER CASH/PA/Advanced Practice Nurse/Resident Physician. I agree with the documented findings, disposition and treatment plan as described except to the extent set forth below.
--- NOTE | 2016-07-06 11:09 | Physician Discharge Referral ---
<Linda Mendez - Last Filed: 07/06/16 11:08> Home Health/Hosp Referral Info Transfer to: Home Health Attending Provider: Dr. Augusto Howe Provider in Charge Post Discharge: PCP - Diagnosis (1) Community acquired pneumonia Priority: Primary Status: Acute (2) Hypertension Priority: Secondary Status: Chronic (3) Chest pain Priority: Secondary Status: Resolved - Respiratory Orders Oxygen / L per min (2) Smoking Cessation: Smoking cessation has been advised. For more information, call the [employer] Line at [phone]. - Diet/Nutrition Diet/Nutrition Orders: Regular - Activity Activity Orders: Ambulate - Services Needed Following services are medically necessary services: Home Health Aide - Transfer Medications Prescriptions: Amoxicillin 875 mg PO BID #6 tablet Carvedilol [Coreg] 6.25 mg PO BIDWM #60 tablet Lisinopril [Zestril] 40 mg PO DAILY #30 tablet Home Medications: Amoxicillin 875 mg PO BID #6 tablet 07/05/16 [Rx] Carvedilol [Coreg] 6.25 mg PO BIDWM #60 tablet 07/05/16 [Rx] Lisinopril [Zestril] 40 mg PO DAILY #30 tablet 07/06/16 [Rx] Allergies/Adverse Reactions: Allergies ANTIBIOTIC Allergy (Severe, Uncoded 06/30/16 16:51) Difficulty Breathing PATIENT AND DAUGHTER ARE NOT SURE WHICH ANTIBIOTIC CAUSED CORAZON- IT WAS IN 2007- I CALLED [facility] AND THEY DO NOT HAVE FILL RECORDS BACK THAT FAR- Certification: Further, I certify that my clinical findings support that this patient is homebound (i.e. absences from home require considerable and taxing effort and are for medical reasons or gnosticism services or infrequently or short duration when for other reasons) because: Homebound Reason: Patient requires assistance of a person or device to safely leave home Attestation: My signature below is to certify that this patient is under my care and that I, or nurse practitioner, or a physician's data control assistant working with me, has a face-to -face encounter with this patient. <Augusto Howe P - Last Filed: 07/06/16 18:53> - Respiratory Orders Smoking Cessation: Smoking cessation has been advised. For more information, call the [facility] [facility] Line at [phone]. Certification: Further, I certify that my clinical findings support that this patient is homebound (i.e. absences from home require considerable and taxing effort and are for medical reasons or gnosticism services or infrequently or short duration when for other reasons) because: Attestation: My signature below is to certify that this patient is under my care and that I, or nurse practitioner, or a physician's data control assistant working with me, has a face-to -face encounter with this patient.
[2016-07-06 12:10] VITALS: BP 148/81
== END 2016-07-06 16:56 | disposition home health service (06) | DRG 177 ==
LOC: 2NENU 14:06 → EMEROO 14:06 → 2NENU 18:35
PROVIDERS: ADMIT Family Medicine; ATTEND Internal Medicine